=== PATIENT | female | born 1950 | race Caucasian/White ===

== ENCOUNTER 2017-09-13 20:22 | Emergency (ER) | payer OTHER ==
[~2017-09-13] VITALS: Ht 172.7 cm; Wt 145.5 kg
[~2017-09-13 20:22] MED LIST: ASPI81TA21 PO; LORT7.5T3 PO; TAB-TAB PO; TRILIPEX PO; VITA400C28 PO; VITA50LO PO
[2017-09-13 20:29] VITALS: BP 162/77; PULSE 86; RESP 16; TEMP 98.1; O2SAT 96
[2017-09-13] MEDS ORDERED: TRAZ50TA12 PO (20:55)
[2017-09-13] MEDS ORDERED: ASPI81CH CHEW (20:55)
[2017-09-13] MEDS ORDERED: ATOR20TA15 PO (20:55)
[2017-09-13] MEDS ORDERED: BUPR100CR PO (20:55)
[2017-09-13] MEDS ORDERED: OMEP20TA PO (20:55)
--- NOTE | 2017-09-13 21:08 | PD ---
HPI Chief Complaint: Musculoskeletal Complaint Time Seen by Provider: 20:53 Travel History International Travel<30 days: No Contact w/Intl Traveler<30days: No Traveled to known affect area: No History of Present Illness HPI 67-year-old female presents to emergency department after dropping a piece of plywood on her left mid foot at about 5 PM today. States that she was able to go to [employer] afterwards however the pain has increased and her foot has become more swollen. She was able to walk on the foot immediately afterwards however, she is having difficulty bearing weight at this point. She is not taken any medication to help relieve her pain. She has full range of motion of her foot, ankle, and toes. She denies numbness, tingling. PFSH Past Medical History Bipolar Disorder: Yes High Cholesterol: Yes Diminished Hearing: No GERD: Yes Insomnia: Yes Tetanus Vaccination: < 5 Years Influenza Vaccination: Yes ?: Not Menopausal: Yes Past Surgical History Cholecystectomy: Yes Hysterectomy: Yes Other Surgery: Yes (Rt breast biopsy) Social History Alcohol Use: No Tobacco Use: No Substance Use: No Allergies-Medications (Allergen,Severity, Reaction): Coded Allergies: No Known Allergies (Verified , 07/17/11) Reported Meds & Prescriptions Reported Meds & Active Scripts Active Reported Omeprazole 20 Mg Tab 20 Mg PO DAILY Aspirin 81 Mg Chew 81 Mg CHEW DAILY Wellbutrin SR 12 HR (Bupropion HCl) 100 Mg Tab 100 Mg PO Q12HR Trazodone (Trazodone HCl) 50 Mg Tab 50 Mg PO HS Atorvastatin (Atorvastatin Calcium) 20 Mg Tab 20 Mg PO HS Review of Systems Except as stated in HPI: all other systems reviewed are Neg Physical Exam Narrative GENERAL: Well-nourished, well-developed patient. SKIN: Focused skin assessment warm/dry. HEAD: Normocephalic. EYES: No scleral icterus. No injection or drainage. CARDIOVASCULAR: Regular rate and rhythm without murmurs, gallops, or rubs. RESPIRATORY: Breath sounds equal bilaterally. No accessory muscle use. MUSCULOSKELETAL: No cyanosis, or edema. Left foot: +2 edema, ecchymosis over midfoot with TTP. Good cap refill and sensation. No crepitus. BACK: Nontender without obvious deformity. No CVA tenderness. Data Data Last Documented VS Vital Signs Date Time Temp Pulse Resp B/P (MAP) Pulse Ox O2 Delivery O2 Flow Rate FiO2 10/25/17 22:24 09/13/17 20:29 98.1 86 16 96 Orders Orders Foot, Complete ([id number]) (09/13/17 ) Splint Or Brace Apply/Monitor (09/13/17 22:10) Ed Discharge Order (09/13/17 22:13) MDM Medical Decision Making Medical Screen Exam Complete: Yes Emergency Medical Condition: Yes Differential Diagnosis Left toe contusion versus fracture versus sprain Narrative Course 67-year-old female presents to emergency department for pain in her left foot after dropping a piece of plywood on it today. States that she did have pain however was able to complete her daily tasks. Throughout the day the pain has worsened and now she has having difficulty bearing weight on the foot. Physical exam demonstrates there is TTP of the left midfoot with +2 pitting edema. The midfoot is ecchymotic. Skin intact. Full range of motion of ankle , foot, and toes. Neurovascularly intact Imaging study- no fracture. Patient to take [id number] Tylenol and Motrin for pain relief RICE for foot pain. Advised pt to perform foot pumps while sitting. Diagnosis Primary Impression: Contusion Qualified Codes: S90.32XA - Contusion of left foot, initial encounter Referrals: Primary Care Physician Additional Instructions: Continue ice for symptom relief May use [id number] ibuprofen or Tylenol for pain relief. Follow-up with her primary care physician for further treatment and evaluation If he developed increased pain, swelling or redness return to the emergency department for further treatment Disposition: 01 DISCHARGE HOME Condition: Stable Denice Vilchis Sep 13, 2017 21:08
--- NOTE | 2017-09-13 21:08 | PD ---
HPI Chief Complaint: Musculoskeletal Complaint Time Seen by Provider: 20:53 Travel History International Travel<30 days: No Contact w/Intl Traveler<30days: No Traveled to known affect area: No History of Present Illness HPI 67-year-old female presents to emergency department after dropping a piece of plywood on her left mid foot at about 5 PM today. States that she was able to go to [employer] afterwards however the pain has increased and her foot has become more swollen. She was able to walk on the foot immediately afterwards however, she is having difficulty bearing weight at this point. She is not taken any medication to help relieve her pain. She has full range of motion of her foot, ankle, and toes. She denies numbness, tingling. PFSH Past Medical History Bipolar Disorder: Yes High Cholesterol: Yes Diminished Hearing: No GERD: Yes Insomnia: Yes Tetanus Vaccination: < 5 Years Influenza Vaccination: Yes ?: Not Menopausal: Yes Past Surgical History Cholecystectomy: Yes Hysterectomy: Yes Other Surgery: Yes (Rt breast biopsy) Social History Alcohol Use: No Tobacco Use: No Substance Use: No Allergies-Medications (Allergen,Severity, Reaction): Coded Allergies: No Known Allergies (Verified , 07/17/11) Reported Meds & Prescriptions Reported Meds & Active Scripts Active Reported Omeprazole 20 Mg Tab 20 Mg PO DAILY Aspirin 81 Mg Chew 81 Mg CHEW DAILY Wellbutrin SR 12 HR (Bupropion HCl) 100 Mg Tab 100 Mg PO Q12HR Trazodone (Trazodone HCl) 50 Mg Tab 50 Mg PO HS Atorvastatin (Atorvastatin Calcium) 20 Mg Tab 20 Mg PO HS Review of Systems Except as stated in HPI: all other systems reviewed are Neg Physical Exam Narrative GENERAL: Well-nourished, well-developed patient. SKIN: Focused skin assessment warm/dry. HEAD: Normocephalic. EYES: No scleral icterus. No injection or drainage. CARDIOVASCULAR: Regular rate and rhythm without murmurs, gallops, or rubs. RESPIRATORY: Breath sounds equal bilaterally. No accessory muscle use. MUSCULOSKELETAL: No cyanosis, or edema. Left foot: +2 edema, ecchymosis over midfoot with TTP. Good cap refill and sensation. No crepitus. BACK: Nontender without obvious deformity. No CVA tenderness. Data Data Last Documented VS Vital Signs Date Time Temp Pulse Resp B/P (MAP) Pulse Ox O2 Delivery O2 Flow Rate FiO2 10/25/17 22:24 09/13/17 20:29 98.1 86 16 96 Orders Orders Foot, Complete ([id number]) (09/13/17 ) Splint Or Brace Apply/Monitor (09/13/17 22:10) Ed Discharge Order (09/13/17 22:13) MDM Medical Decision Making Medical Screen Exam Complete: Yes Emergency Medical Condition: Yes Differential Diagnosis Left toe contusion versus fracture versus sprain Narrative Course 67-year-old female presents to emergency department for pain in her left foot after dropping a piece of plywood on it today. States that she did have pain however was able to complete her daily tasks. Throughout the day the pain has worsened and now she has having difficulty bearing weight on the foot. Physical exam demonstrates there is TTP of the left midfoot with +2 pitting edema. The midfoot is ecchymotic. Skin intact. Full range of motion of ankle , foot, and toes. Neurovascularly intact Imaging study- no fracture. Patient to take [id number] Tylenol and Motrin for pain relief RICE for foot pain. Advised pt to perform foot pumps while sitting. Diagnosis Primary Impression: Contusion Qualified Codes: S90.32XA - Contusion of left foot, initial encounter Referrals: Primary Care Physician Additional Instructions: Continue ice for symptom relief May use [id number] ibuprofen or Tylenol for pain relief. Follow-up with her primary care physician for further treatment and evaluation If he developed increased pain, swelling or redness return to the emergency department for further treatment Disposition: 01 DISCHARGE HOME Condition: Stable Denice Vilchis Sep 13, 2017 21:08
--- NOTE | 2017-09-13 21:08 | PD ---
HPI Chief Complaint: Musculoskeletal Complaint Time Seen by Provider: 20:53 Travel History International Travel<30 days: No Contact w/Intl Traveler<30days: No Traveled to known affect area: No History of Present Illness HPI 67-year-old female presents to emergency department after dropping a piece of plywood on her left mid foot at about 5 PM today. States that she was able to go to [employer] afterwards however the pain has increased and her foot has become more swollen. She was able to walk on the foot immediately afterwards however, she is having difficulty bearing weight at this point. She is not taken any medication to help relieve her pain. She has full range of motion of her foot, ankle, and toes. She denies numbness, tingling. PFSH Past Medical History Bipolar Disorder: Yes High Cholesterol: Yes Diminished Hearing: No GERD: Yes Insomnia: Yes Tetanus Vaccination: < 5 Years Influenza Vaccination: Yes ?: Not Menopausal: Yes Past Surgical History Cholecystectomy: Yes Hysterectomy: Yes Other Surgery: Yes (Rt breast biopsy) Social History Alcohol Use: No Tobacco Use: No Substance Use: No Allergies-Medications (Allergen,Severity, Reaction): Coded Allergies: No Known Allergies (Verified , 07/17/11) Reported Meds & Prescriptions Reported Meds & Active Scripts Active Reported Omeprazole 20 Mg Tab 20 Mg PO DAILY Aspirin 81 Mg Chew 81 Mg CHEW DAILY Wellbutrin SR 12 HR (Bupropion HCl) 100 Mg Tab 100 Mg PO Q12HR Trazodone (Trazodone HCl) 50 Mg Tab 50 Mg PO HS Atorvastatin (Atorvastatin Calcium) 20 Mg Tab 20 Mg PO HS Review of Systems Except as stated in HPI: all other systems reviewed are Neg Physical Exam Narrative GENERAL: Well-nourished, well-developed patient. SKIN: Focused skin assessment warm/dry. HEAD: Normocephalic. EYES: No scleral icterus. No injection or drainage. CARDIOVASCULAR: Regular rate and rhythm without murmurs, gallops, or rubs. RESPIRATORY: Breath sounds equal bilaterally. No accessory muscle use. MUSCULOSKELETAL: No cyanosis, or edema. Left foot: +2 edema, ecchymosis over midfoot with TTP. Good cap refill and sensation. No crepitus. BACK: Nontender without obvious deformity. No CVA tenderness. Data Data Last Documented VS Vital Signs Date Time Temp Pulse Resp B/P (MAP) Pulse Ox O2 Delivery O2 Flow Rate FiO2 10/25/17 22:24 09/13/17 20:29 98.1 86 16 96 Orders Orders Foot, Complete ([id number]) (09/13/17 ) Splint Or Brace Apply/Monitor (09/13/17 22:10) Ed Discharge Order (09/13/17 22:13) MDM Medical Decision Making Medical Screen Exam Complete: Yes Emergency Medical Condition: Yes Differential Diagnosis Left toe contusion versus fracture versus sprain Narrative Course 67-year-old female presents to emergency department for pain in her left foot after dropping a piece of plywood on it today. States that she did have pain however was able to complete her daily tasks. Throughout the day the pain has worsened and now she has having difficulty bearing weight on the foot. Physical exam demonstrates there is TTP of the left midfoot with +2 pitting edema. The midfoot is ecchymotic. Skin intact. Full range of motion of ankle , foot, and toes. Neurovascularly intact Imaging study- no fracture. Patient to take [id number]-lls-gyabuin Tylenol and Motrin for pain relief RICE for foot pain. Advised pt to perform foot pumps while sitting. Diagnosis Primary Impression: Contusion Qualified Codes: S90.32XA - Contusion of left foot, initial encounter Referrals: Primary Care Physician Additional Instructions: Continue ice for symptom relief May use [id number] ibuprofen or Tylenol for pain relief. Follow-up with her primary care physician for further treatment and evaluation If he developed increased pain, swelling or redness return to the emergency department for further treatment Disposition: 01 DISCHARGE HOME Condition: Stable Denice Vilchis Sep 13, 2017 21:08
--- NOTE | 2017-09-13 22:09 | RADRPT ---
EXAM DATE/TIME: 09/13/2017 21:21 [facility] COMPARISON: No previous studies available for comparison. INDICATIONS : Pain after dropping building materials on foot. MEDICAL HISTORY : None. SURGICAL HISTORY : None. ENCOUNTER: Initial ACUITY: 1 day PAIN SCORE: 3/10 LOCATION: Left foot FINDINGS: There is soft tissue swelling which appears mainly to involve the distal forefoot. No evidence of und erlying fracture or dislocation. There is arthritic change most notably involving the first MTP joint . A moderate-sized plantar heel spur is present. CONCLUSION: No acute bony injury Claudy Choe MD on September 13, 2017 at 22:06 Board Certified Radiologist. This report was verified electronically.
[2017-09-25] MEDS ORDERED: CLIN1CAP6 PO (17:04)
== END 2017-09-13 22:34 | disposition home or self-care (01) ==
LOC: PHEFT 20:22
DX: S90.32XA Contusion of left foot, initial encounter (principal); W20.8XXA Other cause of strike by thrown, projected or falling object, initial encounter
CPT/HCPCS: 73630; 99283

== ENCOUNTER 2017-09-25 14:16 | Emergency (ER) | payer OTHER ==
[~2017-09-25] VITALS: Ht 172.7 cm; Wt 116.9 kg
[~2017-09-25 14:16] MED LIST changes: +ASPI-516 CHEW; -ASPI81TA21 PO; +ATOR20TA15 PO; +BUPR100CR PO; -LORT7.5T3 PO; +OMEP20TA93 PO; -TAB-TAB PO; +TRAZ50TA12 PO; -TRILIPEX PO; -VITA400C28 PO; -VITA50LO PO
[2017-09-25 14:40] VITALS: BP 153/70; PULSE 86; RESP 18; TEMP 97.6; O2SAT 95
[2017-09-25] MEDS ORDERED: CEPH-460 PO (14:51)
--- NOTE | 2017-09-25 15:52 | PD ---
HPI Chief Complaint: Skin Problem Time Seen by Provider: 14:43 Travel History International Travel<30 days: No Contact w/Intl Traveler<30days: No Traveled to known affect area: No History of Present Illness HPI This is a 67-year-old female who presents to the emergency department having dropped a piece of construction board onto her foot on October 14. She says for the past several days her foot is gone increasingly swollen and painful, constant, moderate severity associated with increasing warmth and redness. She' s developed a blister on the top of the foot. She saw her primary care doctor 4 days ago who started her on Keflex but her symptoms are worsening. She did have an x-ray at the time of her injury which was reassuring. She denies any fevers or chills and does not have diabetes. PFSH Past Medical History Bipolar Disorder: Yes High Cholesterol: Yes Diminished Hearing: No GERD: Yes Insomnia: Yes Tetanus Vaccination: Unknown Influenza Vaccination: Yes ?: Not Menopausal: Yes Past Surgical History Cholecystectomy: Yes Hysterectomy: Yes Other Surgery: Yes (Rt breast biopsy) Social History Alcohol Use: No Tobacco Use: No Substance Use: No Allergies-Medications (Allergen,Severity, Reaction): Coded Allergies: Iodine and Iodide Containing Produc (Verified Allergy, Severe, Anaphylaxis , 09/25/17) Reported Meds & Prescriptions Reported Meds & Active Scripts Active Tramadol (Tramadol HCl) 50 Mg Tab 50 Mg PO Q6H PRN Clindamycin (Clindamycin HCl) 300 Mg Cap 300 Mg PO TID Reported Keflex (Cephalexin) 500 Mg Cap 500 Mg PO DIRECTED Omeprazole 20 Mg Tab 20 Mg PO DAILY Aspirin 81 Mg Chew 81 Mg CHEW DAILY Wellbutrin SR 12 HR (Bupropion HCl) 100 Mg Tab 100 Mg PO Q12HR Trazodone (Trazodone HCl) 50 Mg Tab 50 Mg PO HS Atorvastatin (Atorvastatin Calcium) 20 Mg Tab 20 Mg PO HS Review of Systems Except as stated in HPI: all other systems reviewed are Neg Physical Exam Narrative GENERAL:Well appearing, no acute distress SKIN: Erythema and warmth over the dorsal aspect of the left foot extending up the lateral ankle with no joint effusion. Small blister on the dorsum of the foot which appears blood-filled. HEAD: Atraumatic. Normocephalic. EYES: Pupils equal and round. No injection or drainage. ENT: Moist mucous membranes NECK: Trachea midline. CARDIOVASCULAR: Regular rate and rhythm. No murmur appreciated. RESPIRATORY: Clear to auscultation. Breath sounds equal bilaterally. GASTROINTESTINAL: Abdomen soft, non-tender, nondistended. MUSCULOSKELETAL: Local edema and ecchymoses involving the dorsal left foot. NEUROLOGICAL: Awake and alert. No obvious cranial nerve deficits. Moving all extremities. PSYCHIATRIC: Appropriate mood and affect; insight and judgment normal. Data Data Last Documented VS Vital Signs Date Time Temp Pulse Resp B/P (MAP) Pulse Ox O2 Delivery O2 Flow Rate FiO2 09/25/17 14:40 97.6 86 18 153/70 (97) [address] Foot W/O Contrast (09/25/17 ) MDM Medical Decision Making Medical Screen Exam Complete: Yes Emergency Medical Condition: Yes Interpretation(s) Last 24 hours Impressions [address] Extremity CT 09/25/17 0000 Signed Impressions: Service Date/Time: Monday, September 25, 2017 15:45 - CONCLUSION: 1. There appear to be old fractures involving the bases of the third and fourth metatarsals. 2. No acute fracture seen. 3. Extensive contusion along the dorsum of the foot. Mendoza Osman MD Differential Diagnosis Cellulitis, abscess, hematoma, contusion, sprain Narrative Course This is a 67-year-old female who presents to the emergency department having had a foot injury about a week ago with increasing swelling and redness of the dorsal aspect of the foot with increasing pain. She had a small blister on the top of the foot which I drained and there was no purulent drainage. I obtained a CT scan of the foot which demonstrates third and fourth metatarsal fractures at the bases which on CT appear old although she doesn't recall ever breaking her foot before and it would be consistent with her current injury. Given the degree of redness at think it's reasonable to keep the patient on antibiotics. She was prescribed clindamycin. She'll also be placed in a posterior splint and she will follow-up with Dr. Smith. I asked her to take the splint time once a day to evaluate her foot for changes in redness or warmth. Diagnosis Primary Impression: Metatarsal bone fracture Qualified Codes: S92.302A - Fracture of unspecified metatarsal bone(s), left foot, initial encounter for closed fracture Referrals: Mendoza Smith DPM Patient Instructions: General Instructions Med/Other Pt SpecificInfo: Prescription(s) given Scripts Tramadol (Tramadol) 50 Mg Tab 50 MG PO Q6H Y for PAIN, #15 TAB 0 Refills Prov: Maty Malhotra MD 09/25/17 Clindamycin (Clindamycin) 300 Mg Cap 300 MG PO TID for Infection, #21 CAP 0 Refills Prov: Maty Malhotra MD 09/25/17 Disposition: 01 DISCHARGE HOME Condition: Stable Maty Malhotra MD Sep 25, 2017 15:52
--- NOTE | 2017-09-25 16:26 | RADRPT ---
EXAM DATE/TIME: 09/25/2017 15:45 [facility] COMPARISON: No previous studies available for comparison. INDICATIONS : A piece of building material dropped on patients left foot one week ago. Pain and swelling getting wo rse. Pain around 3rd and 4th metatarsal/tarsal area. RADIATION DOSE: 6.19 CTDIvol (mGy) MEDICAL HISTORY : Hypercholesterolemia. Gastroesophageal reflux disease. SURGICAL HISTORY : Cholecystectomy. Hysterectomy. ENCOUNTER: Initial ACUITY: 1 week PAIN SCALE: 7/10 LOCATION: Left foot TECHNIQUE: Volumetric scanning of the foot was performed. Using automated exposure control and adjustment of th e mA and/or kV according to patient size, radiation dose was kept as low as reasonably achievable to obtain optimal diagnostic quality images. DICOM format image data is available electronically for re view and comparison. FINDINGS: BONES: No evidence of acute fracture. There does appear to be old fractures involving the bases of the third and fourth metatarsals. Large plantar calcaneal spur. JOINTS: No evidence of joint narrowing or effusion. SOFT TISSUES: Extensive soft tissue contusion along the dorsum of the foot adjacent to the metatarsals. Muscles, te ndons, and neurovascular structures are grossly unremarkable. No evidence of mass, organized fluid co llection, or foreign body. CONCLUSION: 1. There appear to be old fractures involving the bases of the third and fourth metatarsals. 2. No acute fracture seen. 3. Extensive contusion along the dorsum of the foot. Mendoza Osman MD on September 25, 2017 at 16:15 Board Certified Radiologist. This report was verified electronically.
[2017-09-25] MEDS ORDERED: CLIN300C5 PO (17:04)
[2017-09-25] MEDS ORDERED: TRAM50TA PO (17:04)
[2017-09-25 17:10] VITALS: BP 144/70; PULSE 76; RESP 16; O2SAT 97
== END 2017-09-25 17:53 | disposition home or self-care (01) ==
LOC: PHED 14:16
DX: S92.302A Fracture of unspecified metatarsal bone(s), left foot, initial encounter for closed fracture (principal); E78.00 Pure hypercholesterolemia, unspecified; X58.XXXA Exposure to other specified factors, initial encounter; Z79.82 Long term (current) use of aspirin; Z79.899 Other long term (current) drug therapy
CPT/HCPCS: 29515; 73700; 99284; E0113